=== PATIENT | male | born 1970 | race African-American/Black ===

== ENCOUNTER 2022-10-27 16:10 | Emergency (ER) | payer MEDICAID, OTHER ==
[~2022-10-27] VITALS: Ht 175.3 cm; Wt 73.0 kg
[2022-10-27 16:15] VITALS: BP 129/89; PULSE 53; RESP 20; TEMP 98.7; O2SAT 97
[2022-10-27] MEDS ORDERED: SULFAMETHOXAZOLE/TRIMETHOPRIM 400/80MG TAB PO ONE (18:45)
[2022-10-27] MEDS ORDERED: BACITRACIN ZINC OINT UDPKT TOP ONE (18:45)
[2022-10-27] MEDS ORDERED: CLIN-194 MT (18:51)
[2022-10-27] MEDS ORDERED: TETANUS, DIPHTHERIA, PERTUSSIS VAC/PF 0.5ML (>10YR OLD) IM ONE (19:00)
== END 2022-10-27 19:37 | disposition home or self-care (01) ==
LOC: ER 16:10
DX: S61.219A Laceration without foreign body of unspecified finger without damage to nail, initial encounter (principal); Z88.0 Allergy status to penicillin; W45.8XXA Other foreign body or object entering through skin, initial encounter; Y93.89 Activity, other specified; Y92.89 Other specified places as the place of occurrence of the external cause; Y99.8 Other external cause status
CPT/HCPCS: 90471; 90715; 99283

== ENCOUNTER 2025-01-10 07:50 | Emergency (ER) | payer SELFPAY ==
[~2025-01-10] VITALS: Ht 167.6 cm; Wt 73.0 kg
[~2025-01-10 07:50] MED LIST: CLIN-194 MT
[2025-01-10 07:51] VITALS: TEMP 36.8; O2SAT 99
[2025-01-10] MEDS ORDERED: TOPUD PO (09:09)
[2025-01-10 09:12] VITALS: BP 128/82; PULSE 85; RESP 16; O2SAT 99
[2025-01-10 09:24] VITALS: TEMP 98.3
[2025-01-10] MEDS: ACETAMINOPHEN 325MG TABLET PO ONE (09:24)
== END 2025-01-10 09:31 | disposition home or self-care (01) ==
LOC: ER 07:50 → CMPBEDREQ 12:27
DX: R51.9 Headache, unspecified (principal); Z88.0 Allergy status to penicillin
CPT/HCPCS: 99284